=== PATIENT | male | born 2000 | race Two or more races ===

== ENCOUNTER → 2024-09-07 | Outpatient (CLI) | payer OTHER, SELFPAY ==
[2024-09-07 08:00] LABS: Collection Type, Urine Clean Catch
[2024-09-07 08:29] LABS: Bilirubin,Urine Negative (Negative); Blood,Urine Negative (Negative); Clarity,Urine Clear (Clear/Hazy); Color,Urine Lt-Yellow (Lt Yel-Yel); Glucose, Urine Negative (Negative); Ketones,Urine Negative (Negative); Leukocyte Esterase,Urine Negative (Negative); Nitrite,Urine Negative (Negative); Protein,Urine Negative (Neg - Trace); RBC,Urine 23 /hpf (0-3); Specific Gravity,Urine 1.024 (1.001-1.035); Squamous Epithelial Cell,Urine 3 /hpf (0-5); Urobilinogen,Urine Negative mg/dL (0.0-1.0); WBC,Urine 2 /hpf (0-5)
[2024-09-07 08:33] LABS: Basophils % (Auto) 0 % (0-2.5); Eosinophils # (Auto) 0.2 Thou/mm3 (0.0-0.5); Eosinophils % (Auto) 3 % (0-10); Hemoglobin 16.4 g/dL (13.5-16.0); Immature Granulocytes % (Auto) 0 % (0-0); Immature Granulocytes Auto 0.01 Thou/mm3 (0.00-0.00); Lymphocytes # (Auto) 2.1 Thou/mm3 (1.0-4.8); Lymphocytes % (Auto) 36 % (10-50); Mean Corpuscular HGB Conc 33.5 g/dl (31.0-37.0); Mean Corpuscular Hemoglobin 27.7 pg (25.0-35.0); Mean Corpuscular Volume 83 fL (80-100); Monocytes # (Auto) 0.4 Thou/mm3 (0.0-0.8); Monocytes % (Auto) 8 % (0-12); Neutrophils % (Auto) 53 % (37-80); Nucleated Red Blood Cell % 0 /100 WBC (0); Platelet Count 292 Thou/mm3 (140-440); RDW Standard Deviation 38.8 fL (35.1-43.9); Red Blood Count 5.93 Miln/mm3 (4.50-5.90); White Blood Count 5.7 Thou/mm3 (3.8-10.6)
[2024-09-07 08:45] LABS: Alanine Aminotransferase 21 U/L (10-49); Albumin, Serum 4.7 gm/dL (3.5-5.0); Albumin/Globulin Ratio 1.8 (1.2-2.2); Alkaline Phosphatase 62 U/L (46-116); Amylase 112 U/L (30-118); Anion Gap 5 (7-16); Aspartate Amino Transferase 23 U/L (0-34); BUN/Creatinine Ratio 13 Ratio (12-20); Bilirubin,Total 0.9 mg/dL (0.3-1.2); Blood Urea Nitrogen 12 mg/dL (9-23); Calcium 10.2 mg/dL (8.3-10.6); Calcium (Corrected) 10.2 mg/dL (8.5-10.1); Carbon Dioxide 29.4 mMol/L (20.0-31.0); Chloride 104 mMol/L (98-107); Creatinine (Component) 0.9 mg/dL (0.6-1.3); Globulin 2.6 gm/dL (2.3-3.5); Glucose 90 mg/dL (74-106); Lipase 43 U/L (12-53); Osmolality,Calculated 275 (275-295); Potassium 4.6 mMol/L (3.4-5.1); Sodium 138 mMol/L (136-145); Total Protein 7.3 gm/dL (5.7-8.2); eGFR > 60 See Note
== END | disposition home or self-care (01) ==
LOC: COPL 06:44
PROVIDERS: PCP Family Medicine; Referring Provider Specialist; Visit Provider Specialist
DX: R10.32 Left lower quadrant pain (principal); R10.12 Left upper quadrant pain; R14.0 Abdominal distension (gaseous)
CPT/HCPCS: 36415; 80053; 81001; 82150; 83690; 85025

== ENCOUNTER 2024-10-04 11:19 | Day surgery (SDC) | payer OTHER, SELFPAY ==
[2024-10-03 12:26] VITALS: BMI 39.1
[2024-10-04] VITALS (10 sets, daily range): BP systolic 119–143; BP diastolic 77–99; PULSE 73–109; RESP 13–22; TEMP 36.2–36.3; O2SAT 97–100; BMI 38.3
[2024-10-04] MEDS: DiphenhydrAMINE INJ 50 MG/ML VIAL 25 MG IV (12:46)
[2024-10-04] MEDS: MIDAZOLAM INJ 1 MG/ML VIAL 2 ML (ASD USE ONLY) 2 MG IV ×2 (12:46→12:55)
[2024-10-04] MEDS: fentaNYL CIT INJ 50 mCg/ML AMP 2ML (ASD USE ONLY) IV ×2 (12:46→12:55)
--- NOTE | 2024-10-04 14:06 | SUR.PHASEII ---
1335 Pt more awake and alert. Denies pain or N/V. Abd remains soft. pt passing flatus. Cheri Po fluids. 1355 Pt assessment unchanged. No complaints. Amb with steady gait. Able to dress self. Pt and mother, Noemi, given dc instructions. Both state understanding. Pt meets dc criteria-to home.
== END 2024-10-04 13:55 | disposition home or self-care (01) ==
PROVIDERS: PCP Family Medicine; Referring Provider Specialist; Visit Provider Specialist
PROC: 0DBE8ZX Excision of Large Intestine, Via Natural or Artificial Opening Endoscopic, Diagnostic (ICD-10-PCS; CPT 45380; principal; 2024-10-04 11:15)
PROC: (CPT 43239; 2024-10-04 11:15)
DX: K64.9 Unspecified hemorrhoids (principal); K22.10 Ulcer of esophagus without bleeding; K29.70 Gastritis, unspecified, without bleeding; K29.50 Unspecified chronic gastritis without bleeding; K22.70 Barrett's esophagus without dysplasia; K31.89 Other diseases of stomach and duodenum; I10 Essential (primary) hypertension; Z79.899 Other long term (current) drug therapy
CPT/HCPCS: 45378; 43239; J1200; J2250; J3010

== ENCOUNTER 2024-11-11 19:12 | Emergency (ER) | payer OTHER, SELFPAY ==
[2024-11-11 19:13] VITALS: BMI 39.1
[2024-11-11 19:29] VITALS: BP 132/87; PULSE 72; RESP 18; TEMP 36.7; O2SAT 98
--- NOTE | 2024-11-11 19:36 | XR_ITS ---
Examination: Abdomen sonogram, Limited Date and time of exam: November 11, 2024 1953 hrs. Indications: Onset severe epigastric pain beginning today Technique: Real-time arceo scale transabdominal sonographic images of the upper abdomen obtained. Findings: Minimal gallbladder sludge with tiny gallstones Gallbladder wall 0.2 cm Common bile duct 0.3 cm Pancreas obscured by bowel gas Liver 18.7 cm smooth contour no focal liver lesions Normal hepatopedal portal venous flow Patent IVC Impression: Cholelithiasis, negative for cholecystitis Normal common bile duct Moderate hepatomegaly no focal liver lesions
--- NOTE | 2024-11-11 19:37 | PD.EDRME ---
Rapid Medical Screening Exam E Arrival date/time: 11/11/24 19:12 Chief Complaint: Abdominal Pain Time Seen by Provider: 11/11/24 19:25 Vital signs: Vital Signs Temperature 98.1 F 11/11/24 19:29 Pulse Rate 72 11/11/24 19:29 Respiratory Rate 18 11/11/24 19:29 Blood Pressure 132/87 H 11/11/24 19:29 Pulse Oximetry (%) 98 11/11/24 19:29 Oxygen Delivery Method Room Air 11/11/24 19:29 E Narrative: Epigastric pain, nausea/vomiting since this morning. History of gallstones.
[2024-11-11] MEDS: ONDANSETRON ODT 4 MG TABRAP PO (19:43)
[2024-11-11] MEDS: KETOROLAC INJ 60 MG/2 ML VIAL 30 MG IM (19:44)
[2024-11-11 20:43] LABS: Collection Type, Urine Clean Catch; RBC,Urine 0 /hpf (0-3); WBC,Urine 0 /hpf (0-5)
[2024-11-11 20:45] LABS: Basophils # (Auto) 0.1 Thou/mm3 (0.0-0.2); Basophils % (Auto) 0 % (0-2.5); Eosinophils # (Auto) 0.1 Thou/mm3 (0.0-0.5); Eosinophils % (Auto) 1 % (0-10); Hematocrit 45.9 % (41.0-53.0); Hemoglobin 15.5 g/dL (13.5-16.0); Immature Granulocytes % (Auto) 0 % (0-0); Immature Granulocytes Auto 0.05 Thou/mm3 (0.00-0.00); Lymphocytes # (Auto) 2.2 Thou/mm3 (1.0-4.8); Lymphocytes % (Auto) 15 % (10-50); Mean Corpuscular HGB Conc 33.8 g/dl (31.0-37.0); Mean Corpuscular Hemoglobin 27.9 pg (25.0-35.0); Mean Corpuscular Volume 83 fL (80-100); Monocytes % (Auto) 7 % (0-12); Neutrophils # (Auto) 11.2 Thou/mm3 (1.8-7.7); Neutrophils % (Auto) 77 % (37-80); Nucleated Red Blood Cell % 0 /100 WBC (0); Platelet Count 282 Thou/mm3 (140-440); RDW Standard Deviation 38.1 fL (35.1-43.9); Red Blood Count 5.56 Miln/mm3 (4.50-5.90); White Blood Count 14.6 Thou/mm3 (3.8-10.6)
[2024-11-11 20:52] LABS: Bacteria,Urine Rare; Bilirubin,Urine Negative (Negative); Blood,Urine Negative (Negative); Clarity,Urine Clear (Clear/Hazy); Color,Urine Lt-Yellow (Lt Yel-Yel); Glucose, Urine Negative (Negative); Ketones,Urine Negative (Negative); Leukocyte Esterase,Urine Negative (Negative); Nitrite,Urine Negative (Negative); PH,Urine 8.5 (5.0-7.0); Protein,Urine Trace (Neg - Trace); Specific Gravity,Urine 1.022 (1.001-1.035); Squamous Epithelial Cell,Urine 1 /hpf (0-5); Urobilinogen,Urine Negative mg/dL (0.0-1.0)
[2024-11-11 21:03] LABS: Alanine Aminotransferase 16 U/L (10-49); Albumin, Serum 4.7 gm/dL (3.5-5.0); Albumin/Globulin Ratio 1.6 (1.2-2.2); Alkaline Phosphatase 63 U/L (46-116); Anion Gap 9 (7-16); Aspartate Amino Transferase 19 U/L (0-34); BUN/Creatinine Ratio 14 Ratio (12-20); Bilirubin,Total 0.8 mg/dL (0.3-1.2); Blood Urea Nitrogen 13 mg/dL (9-23); Calcium 10.1 mg/dL (8.3-10.6); Calcium (Corrected) 10.1 mg/dL (8.5-10.1); Carbon Dioxide 27.7 mMol/L (20.0-31.0); Chloride 104 mMol/L (98-107); Creatinine (Component) 0.9 mg/dL (0.6-1.3); Estimated Creatinine Clearance 153.5 mL/min (>60); Glucose 82 mg/dL (74-106); Lipase 97 U/L (12-53); Osmolality,Calculated 280 (275-295); Potassium 3.6 mMol/L (3.4-5.1); Sodium 141 mMol/L (136-145); Total Protein 7.7 gm/dL (5.7-8.2); eGFR > 60 See Note
--- NOTE | 2024-11-11 21:40 | PD.EDABDPN ---
ED Abdominal Pain RME/HPI General Chief Complaint: Abdominal Pain Stated complaint: ABD PAIN/ SOB Time seen by provider: 11/11/24 19:25 Arrival date/time: 11/11/24 19:12 RME / HPI RME / HPI narrative: 24-year-old male patient with significant history of gallstone, hypertension, came in for evaluation regarding epigastric pain. Onset of symptoms about several hours prior to ER visit as sudden onset of epigastric pain, described as crampy and colicky, severity moderate, nonradiating. Patient also complained of shortness of breath, especially with pain. Denies any fever denies any vomiting denies any constipation diarrhea or other complaints. Patient was seen by Dr. Ordaz and already underwent endoscopy and colonoscopy. Patient told me that the next time will be to take out his gallbladder. Related Data Home Medications ?Medication ?Instructions ?Recorded ?Confirmed amlodipine 5 mg tablet 5 mg PO QDAY 10/03/24 10/04/24 cimetidine 300 mg tablet 300 mg PO TIDWMEAL 10/03/24 10/03/24 Previous Rx's ?Medication ?Instructions ?Recorded dicyclomine 20 mg tablet 20 mg PO TID PRN abdominal pain 11/11/24 #20 tabs Allergies Allergy/AdvReac Type Severity Reaction Status Date / Time NKA Allergy Unknown Uncoded 10/03/24 12:16 Review of Systems Review of Systems Narrative Review of Systems: Review of system reviewed and within normal limits except mentioned in HPI ED Exam Narrative Physical exam: VITAL SIGNS: Reviewed. GENERAL APPEARANCE: Alert and interactive, follows commands, no acute distress, HEAD AND FACE: Non-traumatic. ENT: PERRL, pink conjunctivitis, eyelid no trauma, Mucous membrane moist. NECK: Supple, nontender, no nuchal rigidity. CHEST: No tenderness, no crepitus, no paradoxical movement, no retractions. LUNGS: Clear, well ventilated, symmetric, no rales, no wheezing, no ronchi, no stridor, good breath sounds bilaterally. HEART: Regular rate, regular rhythm, no murmur, no gallops. ABDOMEN: Soft, positive bowel sounds, nondistended, no guarding, epigastric tenderness, no rebound, no masses, RECTAL: Deferred. GENITAL: Deferred. NEUROLOGICAL: Gross motor function intact sensory function intact, Appropriate for age. MUSCULOSKELETAL: low back nontender, full range of motion. EXTREMITIES: Nontender, full range of motion. SKIN: Color pink, dry, no rash, no lacerations, no abrasions, no contusions. LYMPHATICS: Deferred. Course Quality Measures none Orders Category Date Time Status US gall bladder Stat Exams 11/11/24 19:36 Completed CBC Stat Lab 11/11/24 20:08 Completed CMP [Comprehensive Metabolic Panel] Stat Lab 11/11/24 20:08 Completed Lipase Stat Lab 11/11/24 20:08 Completed UA [Urinalysis] Stat Lab 11/11/24 20:12 Completed Ketorolac Inj [Toradol Inj] Med 11/11/24 19:36 Discontinued 30 mg IM X1 ONE Ondansetron Odt [Zofran Odt] Med 11/11/24 19:36 Discontinued 4 mg PO X1 ONE Vital Signs Vital signs: Vital Signs Temperature 98.1 F 11/11/24 19:29 Pulse Rate 72 11/11/24 19:29 Respiratory Rate 18 11/11/24 19:29 Blood Pressure 132/87 H 11/11/24 19:29 Pulse Oximetry (%) 98 11/11/24 19:29 Oxygen Delivery Method Room Air 11/11/24 19:29 Abdominal Pain MDM MDM Narrative MDM Narrative:: 24-year-old male patient with significant history of gallstone, hypertension, came in for evaluation regarding epigastric pain. Onset of symptoms about several hours prior to ER visit as sudden onset of epigastric pain, described as crampy and colicky, severity moderate, nonradiating. Patient also complained of shortness of breath, especially with pain. Denies any fever denies any vomiting denies any constipation diarrhea or other complaints. Patient was seen by Dr. Ordaz and already underwent endoscopy and colonoscopy. Patient told me that the next time will be to take out his gallbladder. Patient's workup all came back unremarkable. Except for slight leukocytosis of 14.6 LFTs are normal. Total bili is normal. Prior to discharge patient abdominal pain is totally gone. Patient was advised to follow-up with PCP and for referral to general surgeon next week. Patient agrees with the plan. Patient data External records reviewed:: None Clinical information provided by:: patient Social determinants that could affect healthcare access:: none Patient has the following chronic illnesses:: History gallstone How is presenting disease/condition affected by chronic disease/condition?: no chronic disease Evaluation data The following diagnostics were reviewed and interpreted by me:: lab results Lab and/or radiology exams considered but not ordered:: None Interpretation Summary: Patient's workup today all came back unremarkable except for leukocytosis of 14.6. LFTs are normal. The rest of the labs unremarkable. Medications / Prescriptions Medications or Prescriptions considered but not ordered:: None Medication administrations:: Medication Administration History Discontinued Medications Ketorolac Tromethamine (Ketorolac Inj 60 Mg/2 Ml Vial) 30 mg IM X1 ONE Stop: 11/11/24 19:37 Last Admin: 11/11/24 19:44 Dose: 30 mg Documented By: Ondansetron HCl (Ondansetron Odt 4 Mg Tabrap) 4 mg PO X1 ONE; Protocol Stop: 11/11/24 19:37 Last Admin: 11/11/24 19:43 Dose: 4 mg Documented By: Toradol and Zofran Consultations Consultation(s) initiated? (list below): No Diagnosis Differential diagnosis abdominal pain: abdominal pain and other (Biliary colic, gallstone) Most likely diagnosis given after review of the tests above:: Biliary colic, gallstone Admission Indicated Admission indicated?: not indicated Admission Request Was there a request for admission?: No Disposition Plan Disposition Plan: Discharge Discharge Attestation Discharge Attestation: The patient and all family members were given an opportunity to ask questions and understood the discharge instructions. Discharge instructions specifically effects, indications for sooner follow up or return to the emergency department, and the expected course of current diagnosis. Patient condition: Stable Discharge Plan Plan Patient Disposition: HOME (Self Care) Disposition Comment: Stable Prescriptions/Referrals Prescriptions/Med Rec: New dicyclomine 20 mg tablet 20 mg PO TID PRN (Reason: abdominal pain) Qty: 20 0RF No Action amlodipine 5 mg tablet 5 mg PO QDAY Patient Comments: TAKE 1 TABLET BY MOUTH ONCE DAILY cimetidine 300 mg tablet 300 mg PO TIDWMEAL Patient Comments: TAKE 1 TABLET BY MOUTH TWICE DAILY WITH MEALS Referrals: Marcus (PCP)Misbah MD [Primary Care Provider] - In 1 week Problem List Clinical Impression: Biliary colic, Gallstone Patient/Caregiver Discharge Instructions Discharge Activity: activity as tolerated Education Materials: ED Gallstones with Biliary Colic Additional Instructions: Thank you for the opportunity for serving you today. You are stable for discharged . You are advised to: Follow-up with your PCP in 1 to 2 days and ask for referral to general surgeon Please avoid eating fatty, greasy, fried foods. Return to ED for worsening of symptoms Increase oral fluids Take medication as prescribed Print Language: Georgian Stand Alone Forms: Vera Award Info., Patient Portal Info Letter
[2024-11-11 21:47] VITALS: RESP 18
== END 2024-11-11 21:47 | disposition home or self-care (01) ==
PROVIDERS: Physician Assistant; Emergency Provider Emergency Medicine; PCP Family Medicine
DX: K80.70 Calculus of gallbladder and bile duct without cholecystitis without obstruction (principal); I10 Essential (primary) hypertension
CPT/HCPCS: 36415; 76705; 80053; 81001; 83690; 85025; 96372; 99284; J1885; Q0162

== ENCOUNTER 2024-12-20 03:25 | Inpatient (IN) | payer OTHER, SELFPAY ==
[2024-12-20] VITALS (8 sets, daily range): BP systolic 115–141; BP diastolic 77–94; PULSE 58–92; RESP 16–97; TEMP 36.1–36.8; O2SAT 97–100; BMI 39.9
--- NOTE | 2024-12-20 03:54 | XR_ITS ---
Examination: Abdomen sonogram, Limited Date and time of exam: December 03, 2024 0432 hrs. Indications: Right upper abdominal pain with nausea beginning today Technique: Real-time arceo scale transabdominal sonographic images of the upper abdomen obtained. Findings: Gallbladder sludge, tiny gallstones Gallbladder wall 0.39 cm no edema Common bile duct 0.36 cm no stones Pancreas obscured by bowel gas Liver 14 cm no liver lesions Normal hepatopedal portal venous flow Patent IVC Impression: Cholelithiasis Abnormal thickening of the gallbladder wall, clinical correlation advised, suggest HIDA scan or MRCP follow-up as clinically warranted
--- NOTE | 2024-12-20 03:55 | PD.EDRME ---
Rapid Medical Screening Exam RME Arrival date/time: 12/20/24 03:25 24-year-old male past medical history of gallstones presents emergency department complaining of right upper quadrant abdominal pain with nausea that started today. Chief Complaint: Abdominal Pain Time Seen by Provider: 12/20/24 03:28 Vital signs: Vital Signs Temperature 97.8 F 12/20/24 03:45 Pulse Rate 63 12/20/24 03:45 Respiratory Rate 17 12/20/24 03:45 Blood Pressure 118/77 12/20/24 03:45 Pulse Oximetry (%) 98 12/20/24 03:45 Oxygen Delivery Method Room Air 12/20/24 03:45 Vital signs reviewed by provider: Yes
[2024-12-20] MEDS: KETOROLAC INJ 60 MG/2 ML VIAL 30 MG IM (04:16)
[2024-12-20 04:53] LABS: Basophils % (Auto) 0 % (0-2.5); Eosinophils # (Auto) 0.1 Thou/mm3 (0.0-0.5); Eosinophils % (Auto) 1 % (0-10); Hematocrit 44.5 % (41.0-53.0); Hemoglobin 15.4 g/dL (13.5-16.0); Immature Granulocytes % (Auto) 0 % (0-0); Immature Granulocytes Auto 0.02 Thou/mm3 (0.00-0.00); Lymphocytes # (Auto) 1.5 Thou/mm3 (1.0-4.8); Lymphocytes % (Auto) 14 % (10-50); Mean Corpuscular HGB Conc 34.6 g/dl (31.0-37.0); Mean Corpuscular Hemoglobin 28.3 pg (25.0-35.0); Mean Corpuscular Volume 82 fL (80-100); Monocytes # (Auto) 0.7 Thou/mm3 (0.0-0.8); Monocytes % (Auto) 7 % (0-12); Neutrophils # (Auto) 8.1 Thou/mm3 (1.8-7.7); Neutrophils % (Auto) 77 % (37-80); Nucleated Red Blood Cell % 0 /100 WBC (0); Platelet Count 239 Thou/mm3 (140-440); RDW Standard Deviation 37.4 fL (35.1-43.9); Red Blood Count 5.44 Miln/mm3 (4.50-5.90); White Blood Count 10.4 Thou/mm3 (3.8-10.6)
[2024-12-20 05:33] LABS: Alanine Aminotransferase 28 U/L (10-49); Albumin, Serum 4.3 gm/dL (3.5-5.0); Albumin/Globulin Ratio 1.6 (1.2-2.2); Alkaline Phosphatase 59 U/L (46-116); Anion Gap 7 (7-16); Aspartate Amino Transferase 40 U/L (0-34); BUN/Creatinine Ratio 21 Ratio (12-20); Bilirubin,Total 0.6 mg/dL (0.3-1.2); Blood Urea Nitrogen 19 mg/dL (9-23); Calcium 9.7 mg/dL (8.3-10.6); Calcium (Corrected) 9.7 mg/dL (8.5-10.1); Chloride 106 mMol/L (98-107); Creatinine (Component) 0.9 mg/dL (0.6-1.3); Estimated Creatinine Clearance 155.1 mL/min (>60); Globulin 2.7 gm/dL (2.3-3.5); Glucose 81 mg/dL (74-106); Lipase 1548 U/L (12-53); Osmolality,Calculated 282 (275-295); Potassium 4.2 mMol/L (3.4-5.1); Sodium 141 mMol/L (136-145); eGFR > 60 See Note
[2024-12-20 05:38] LABS: Collection Type, Urine Clean Catch
[2024-12-20 05:48] LABS: Bacteria,Urine Rare; Bilirubin,Urine Negative (Negative); Blood,Urine Negative (Negative); Budding Yeast,Urine Present; Clarity,Urine Turbid (Clear/Hazy); Color,Urine Lt-Yellow (Lt Yel-Yel); Culture Indicated,Urine Not Indicated; Glucose, Urine Negative (Negative); Ketones,Urine Negative (Negative); Leukocyte Esterase,Urine Negative (Negative); Nitrite,Urine Negative (Negative); PH,Urine 7.5 (5.0-7.0); Protein,Urine Trace (Neg - Trace); RBC,Urine 2 /hpf (0-3); Specific Gravity,Urine 1.024 (1.001-1.035); Squamous Epithelial Cell,Urine < 1 /hpf (0-5); Urobilinogen,Urine Negative mg/dL (0.0-1.0); WBC,Urine 6 /hpf (0-5)
[2024-12-20 05:53] LABS: Amphetamine/Methamp Scrn,U Negative (Negative); Barbiturate Screen,Urine Negative (Negative); Benzodiazepines Screen,Urine Negative (Negative); Benzoylecgonine Screen, Ur Negative (Negative); Fentanyl Screen,Urine Negative (Negative); Opiate Screen,Urine Negative (Negative); THC Screen,Urine Negative (Negative)
--- NOTE | 2024-12-20 06:00 | PRELIM_ITS ---
Gallbladder ultrasound with doppler and wave doppler spectral analysis. December 20, 2024 at 0432 hours Clinical history: Right upper quadrant pain. Comparison: None. Findings: The visualized liver is normal in echogenicity without mass or ductal dilatation. Gallbladder wall thickening. No gallbladder calculus or pericholecystic fluid is identified. Gallbladder sludge. The common duct is normal in caliber at 3.6 mm. No free fluid is demonstrated on the submitted images. The portal vein is patent with hepatopetal flow and normal wave Doppler spectral analysis. The inferior vena cava is patent with normal wave Doppler spectral analysis. Watts sign is not available at the time of this report. Impression: Gallbladder wall thickening and gallbladder sludge, acute cholecystitis cannot be excluded. Consider correlation with HIDA scan. Report Electronically Signed By: Marko Hay 12/20/2024 6:00:01 AM [EST]
--- NOTE | 2024-12-20 06:43 | EDNOTE_ITS ---
ED General RME/HPI General Chief complaint: Abdominal Pain Stated complaint: ABD PAIN/ HX OF GALLSTONES Time Seen by Provider: 12/20/24 03:28 Arrival date/time: 12/20/24 03:25 RME / HPI RME / HPI narrative: 12/20/24 03:25 24-year-old male past medical history of gallstones presents emergency department complaining of right upper quadrant abdominal pain with nausea that started today. DR. PARNELL MAIN ED EVALUATION: 24-year-old male with a history of gallstones who presents with gradually worsening right upper quadrant pain starting late last night. He does admit to eating fatty greasy foods last night ([place]ol[place]). He denies any home medicines, [id number] medicines, or alcohol. He has seen Dr. Ordaz open she had an EGD which was negative. He is pending referral to surgery. Pain is since resolved spontaneously over the course of the night. Related Data Home Medications ?Medication ?Instructions ?Recorded ?Confirmed amlodipine 5 mg tablet 5 mg PO QDAY 10/03/24 cimetidine 300 mg tablet 300 mg PO TIDWMEAL 10/03/24 10/03/24 Previous Rx's ?Medication ?Instructions ?Recorded dicyclomine 20 mg tablet 20 mg PO TID PRN abdominal p ain 11/11/24 #20 tabs Allergies Allergy/AdvReac Type Severity Reaction Status Date / Time No Known Allergies Allergy Unverified 12/21/24 08:13 Review of Systems Review of Systems Systems Reviewed: All systems reviewed, normal except as documented Narrative Review of Systems: GEN: No fever, no chills, no weight loss EYES: No discharge, no visual changes, no pain HEENT: No ear pain, no congestion, no sore throat PULM: No shortness of breath, no cough, no congestion CV: No chest pain, no dyspnea on exertion, no palpitations GI: No nausea, no vomiting, no diarrhea, + right upper quadrant pain, no constipation : No frequency, no urgency and no dysuria MUSC/SKEL: No joint pain, no back pain SKIN: No rash PSYCH: No hallucinations, no depression HEME/LYMPH: No easy bleeding or bruising tendencies NEURO: No weakness, no headache Past Medical History Past Medical History CARDIAC: Positive Cardiac Disorders and Hypertension GASTROINTESTINAL: Positive Gastrointestinal Disorders, Gall Bladder Disease (gb stones), Gastrointestinal Bleed (rectal) and Gastroesophageal Reflux Disease Social History SMOKING STATUS: Never smoker SUBSTANCE USE: does not use ALCOHOL: Never ED Exam Narrative Physical exam: GENERAL APPEARANCE: AxOx4, generally well-appearing, no acute distress. HEENT: NC, AT. MMM. EOMI, clear conjunctiva, oropharynx clear. NECK: Supple without lymphadenopathy. No stiffness or restricted ROM. HEART: Normal rate and regular rhythm, normal S1/S1, no m/r/g LUNGS: CTAB, moving air well. No crackles or wheezes are heard. ABDOMEN: Soft, nontender, nondistended with good bowel sounds heard. BACK: No midline C/T/L spine pain or deformity, No CVAT, no obvious deformity. EXTREMITIES: Without cyanosis, clubbing or edema. MUSCULOSKELETAL: FROM of all major joints, no chest tenderness NEUROLOGICAL: Grossly nonfocal. Alert and oriented, moving all 4 extremities. CN not formally tested but appear grossly intact. Skin: Warm and dry without any rash. Course Quality Measures none Orders Category Date Time Status Insert IV NOW Care 12/20/24 05:39 Active NPO NOW Care 12/20/24 05:40 Active Consult to Gastroenterology Stat Cons 12/20/24 09:09 Ordered Consult to General Surgery Stat Cons 12/20/24 09:08 Ordered Diet NPO (NOW) Diet 12/20/24 05:40 Completed US gall bladder Stat Exams 12/20/24 03:54 Completed Amylase Stat Lab 12/20/24 04:45 Completed CBC Stat Lab 12/20/24 04:45 Completed CMP [Comprehensive Metabolic Panel] Stat Lab 12/20/24 04:45 Completed Drug Screen,Urine Stat Lab 12/20/24 05:12 Completed Lipase Stat Lab 12/20/24 04:45 Completed Urinalysis, C/S if Indicated Stat Lab 12/20/24 05:12 Completed Ketorolac Inj [Toradol Inj] Med 12/20/24 03:54 Discontinued 30 mg IM X1 ONE Sodium Chloride 0.9% 1000 ml [Ns] 1,000 ml Med 12/20/24 05:40 Discontinued IV 999 mls/hr Vital Signs Vital signs: Vital Signs Temperature 97.8 F 12/20/24 03:45 Pulse Rate 63 12/20/24 03:45 Respiratory Rate 17 12/20/24 03:45 Blood Pressure 118/77 12/20/24 03:45 Pulse Oximetry (%) 98 12/20/24 03:45 Oxygen Delivery Method Room Air 12/20/24 03:45 [facility] Patient data External records reviewed:: [facility] previous records (Reviewed last ED visit dated 11/11/24, discharged with the following: Biliary colic) Clinical information provided by:: patient Social determinants that could affect healthcare access:: none Patient has the following chronic illnesses:: Gallstones. He has seen Dr. Ordaz open she had an EGD which was negative. He is pending referral to surgery. How is presenting disease/condition affected by chronic disease/condition?: c aused by Evaluation data The following diagnostics were reviewed and interpreted by me:: lab results and radiology exam(s) Lab and/or radiology exams considered but not ordered:: none Interpretation Summary: Procedure(s): US gall bladder Accession Number(s): [id number] cc: Vijay Grady MD; Misbah Velazquez MD; Janelle Love (OPERATING ROOM TECHNICIAN)[place]wood~ Examination: Abdomen sonogram, Limited Date and time of exam: December 03, 2024 0432 hrs. Indications: Right upper abdominal pain with nausea beginning today Technique: Real-time arceo scale transabdominal sonographic images of the upper abdomen obtained. Findings: Gallbladder sludge, tiny gallstones Gallbladder wall 0.39 cm no edema Common bile duct 0.36 cm no stones Pancreas obscured by bowel gas Liver 14 cm no liver lesions Normal hepatopedal portal venous flow Patent IVC Impression: Cholelithiasis Abnormal thickening of the gallbladder wall, clinical correlation advised, suggest HIDA scan or MRCP follow-up as clinically warranted Dictated By: Vijay Grady MD Medications Medications considered but not ordered:: none Medication administrations:: Medication Administration History Acetaminophen (Acetaminophen 325 Mg Tablet) 650 mg PO Q6H PRN PRN Reason: Pain 1-3 or Fever >100.3 Stop: 01/19/25 09:53 Hydrocodone Bitart/Acetaminophen (Hydrocodone/Apap 5/325 Tablet) 1 tab PO Q4HR PRN PRN Reason: PAIN SCALE 4-10(Mod-Sev Stop: 12/25/24 09:53 Sodium Chloride (Ns) 1,000 mls @ 100 mls/hr IV .Q10H PASCUAL Stop: 01/20/25 09:00 Last Admin: 12/21/24 07:56 Dose: Not Given Documented By: KATHY Non-Admin Reason: Cancelled by Provider Admin: 12/20/24 23:38 Dose: 100 mls/hr Documented By: Infusion: 12/20/24 21:13 Dose: Infused Documented By: Admin: 12/20/24 11:13 Dose: 100 mls/hr Documented By: ED Lactated Ringer's (Lactated Ringers) 1,000 mls @ 200 mls/hr IV .Q5H PASCUAL Stop: 01/20/25 07:42 Last Admin: 12/21/24 07:59 Dose: 200 mls/hr Documented By: KATHY Ondansetron HCl (Ondansetron Inj 2 Mg/Ml Inj 2 Ml) 4 mg IV Q6H PRN; Protocol PRN Reason: NAUSEA OR VOMITING Stop: 01/19/25 09:53 Discontinued Medications Sodium Chloride (Ns) 1,000 mls @ 999 mls/hr IV .Q1H1M ONE Stop: 12/20/24 06:40 Last Infusion: 12/20/24 07:47 Dose: Infused Documented By: Admin: 12/20/24 06:46 Dose: 999 mls/hr Documented By: TACOS Ketorolac Tromethamine (Ketorolac Inj 60 Mg/2 Ml Vial) 30 mg IM X1 ONE Stop: 12/20/24 03:55 Last Admin: 12/20/24 04:16 Dose: 30 mg Documented By: JASON see above Consultations Consultation(s) initiated? (list below): Yes Consultation #1 (Physician, Specialty, Details): Discussed test HPI, PMHx, lab, radiology results and/or management with hospitalist. Will admit for further evaluation and management. Accepts patient for admission. Time: 09:30 Diagnosis Differential Diagnosis ED Complaint MDM: gallstones, pancreatitis, gastritis Most likely diagnosis given after review of the tests above:: Cholelithiasis Pancreatitis Admission Indicated Admission indicated?: indicated Explain why admission is indicated or not indicated:: Diagnoses meet admission criteria. Admission Request Was there a request for admission?: Yes Admission Attestation Admission request attestation: Discussed case with [] from Hospitalist service regarding admission. Discussed patients ED course, exam findings, labs, and radiology results. The Hospitalist [agrees,declines] to accept the patient for admission. Disposition Plan Disposition Plan: Admit Medical Decision Making MDM Narrative MDM Narrative: Mr. Mcgregor has a history of cholelithiasis who is otherwise well-appearing and now asymptomatic on my encounter. He did have symptoms consistent with a flareup of biliary colic after a greasy meal last night. Laboratory testing sent via the E process however was significant for a marked elevation of his lipase consistent with gallstone pancreatitis/choledocholithiasis. However given that he is pain-free now I suspect he had passed a stone from his CBD it was impacted earlier this evening. Ultrasound shows persistent cholelithiasis with micro stones. Given now was complicated with pancreatitis he would benefit from admission for monitoring his pancreatic levels, with possible cholecystectomy. Case reviewed with gastroenterology, Dr. Ordaz, and given patient is pain-free, he does not feel MRCP or ERCP is warranted at this point but does recommend admission as well and possible cholecystectomy. Case reviewed with general surgery, Dr. Lima, and he agrees to assess the patient in consult as an inpatient. Differential Diagnosis Differential Diagnosis: gallstones, pancreatitis, gastritis Lab Data 12/21/24 05:10 12/21/24 05:10 Labs: Lab Results 12/20/24 12/20/24 Range/Units 04:45 05:12 WBC 10.4 (3.8-10.6) Thou/mm3 RBC 5.44 (4.50-5.90) Miln/mm3 Hgb 15.4 (13.5-16.0) g/dL Hct 44.5 (41.0-53.0) % MCV 82 (80-100) fL MCH 28.3 (25.0-35.0) pg MCHC 34.6 (31.0-37.0) g/dl RDW Std Deviation 37.4 (35.1-43.9) fL Plt Count 239 D (140-440) Thou/mm3 Neut % (Auto) 77 (37-80) % Lymph % (Auto) 14 (10-50) % [place] % (Auto) 7 (0-12) % Eos % (Auto) 1 (0-10) % Baso % (Auto) 0 (0-2.5) % Neut # (Auto) 8.1 H (1.8-7.7) Thou/mm3 Lymph # (Auto) 1.5 (1.0-4.8) Thou/mm3 [place] # (Auto) 0.7 (0.0-0.8) Thou/mm3 Eos # (Auto) 0.1 (0.0-0.5) Thou/mm3 Baso # (Auto) 0.0 (0.0-0.2) Thou/mm3 Immature Gran # (Auto) 0.02 H (0.00-0.00) Thou/mm3 Absolute Nucleated RBC 0.00 (0.00-0.00) Thou/mm3 Immature Gran % 0 (0-0) % Nucleated RBC % 0 (0) /100 WBC Sodium 141 (136-145) mMol/L Potassium 4.2 (3.4-5.1) mMol/L Chloride 106 (98-107) mMol/L Carbon Dioxide 28.0 (20.0-31.0) mMol/L Anion Gap 7 (7-16) BUN 19 (9-23) mg/dL Creatinine 0.9 (0.6-1.3) mg/dL Estim Creat Clear Calc 155.1 (>60) mL/min eGFR > 60 (60 - ) See Note BUN/Creatinine Ratio 21 H (12-20) Ratio Glucose 81 (74-106) mg/dL Calculated Osmolality 282 (275-295) Calcium 9.7 (8.3-10.6) mg/dL Corrected Calcium 9.7 (8.5-10.1) mg/dL Total Bilirubin 0.6 (0.3-1.2) mg/dL AST 40 H (0-34) U/L ALT 28 (10-49) U/L Alkaline Phosphatase 59 (46-116) U/L Total Protein 7.0 (5.7-8.2) gm/dL Albumin 4.3 (3.5-5.0) gm/dL Globulin 2.7 (2.3-3.5) gm/dL Albumin/Globulin Ratio 1.6 (1.2-2.2) Amylase 603 H* (30-118) U/L Lipase 1548 H* (12-53) U/L Ur Collection Type Clean Catch Urine Color Lt-Yellow (Lt Yel-Yel) Urine Clarity Turbid A (Clear/Hazy) Urine pH 7.5 H (5.0-7.0) Ur Specific [place] 1.024 (1.001-1.035) Urine Protein Trace (Neg - Trace) Urine Glucose (UA) Negative (Negative) Urine Ketones Negative (Negative) Urine Blood Negative (Negative) Urine Nitrite Negative (Negative) Urine Bilirubin Negative (Negative) Urine Urobilinogen (Auto) Negative (0.0-1.0) mg/dL Ur Leukocyte Esterase Negative (Negative) Urine RBC 2 (0-3) /hpf Urine WBC 6 H (0-5) /hpf Ur Squamous Epith Cells < 1 (0-5) /hpf Urine Bacteria Rare (None) Urine Yeast (Budding) Present A (None) Ur Culture Indicated? Not Indicated Urine Opiates Screen Negative (Negative) Urine Fentanyl Screen Negative (Negative) Ur Barbiturates Screen Negative (Negative) U Amphetamin/Meth Scrn Negative (Negative) U Benzodiazepines Scrn Negative (Negative) U Cocaine Metab Screen Negative (Negative) U Marijuana (THC) Screen Negative (Negative) Discharge Plan Plan Patient Disposition: Admit Acute Care w/in Hospital Problem List Clinical Impression: Cholelithiasis, Pancreatitis
[2024-12-20] MEDS: SODIUM CHLORIDE 0.9% 1000 ML 1,000 ML 999 ML IV (06:46)
--- NOTE | 2024-12-20 08:57 | PC.NURSE ---
Pt. here from home to room 9, pt. states he ate some meat last night that his Mom made with francheska in it and then began to feel the pain. Pt. denies any nausea or vomiting at this time. Pt. states when he found out a year ago that he had gallstones he changed his diet then but now has not been sticking to his diet. Mother at bedside and states pt. doesn't listen.
--- NOTE | 2024-12-20 09:47 | PC.CC ---
Patient is a 24 year-old male who presents to the hospital for ABD Pain/HX of Gallstones. Jasmyn VASQUEZ made [id number] contact with patient. ASW introduced self, role, and reason for visit. Patient appeared alert and oriented to self, location, and situation.?Patient was pleasant and engaged in initial assessment. Patient confirmed information on demographics and reports to living with his mother, Noemi Mcgregor . Patient reports that should something happen to him and he is unable to make his own medical decisions his mother would be his medical decision maker. Patient is employed at [employer]. At home patient is able to ambulate independently and complete his own ADLs. Patient does not use any DME. Patient's primary care provider is Misbah Velazquez and he uses the pharmacy inside [facility]. Upon discharge patient plans to return home. food services director to follow up with any discharge needs.
--- NOTE | 2024-12-20 10:03 | PD.IMCONS ---
HPI Data of Consult Primary Care Provider: Misbah Velazquez MD Consult Narrative Reason for consult: Pain abdomen elevated amylase lipase History of present illness: 24 was admitted presented to the hospital history of abdominal pain patient had elevated amylase of 603 and lipase of 1548 ultrasound of the abdomen showed cholelithiasis Patient does not drink any alcohol cc:: cc: Review of Systems Review of Systems Systems Reviewed: All systems reviewed, normal except as documented Meds Home Medications and Allergies Home Medications ?Medication ?Instructions ?Recorded ?Confirmed ?Type amlodipine 5 mg tablet 5 mg PO QDAY 10/03/24 10/04/24 History cimetidine 300 mg tablet 300 mg PO TIDWMEAL 10/03/24 10/03/24 History Allergies Allergy/AdvReac Type Severity Reaction Status Date / Time NKA Allergy Unknown Uncoded 10/03/24 12:16 Exam Vital Signs Temp Pulse Resp BP Pulse Ox O2 Del Method 97.7 F 72 18 137/87 H 99 Room Air 12/20/24 09:52 12/20/24 09:52 12/20/24 09:52 12/20/24 09:52 12/20/24 09:52 12/20/24 09:52 Constitutional Comments: Alert oriented Routine Respiratory Exam Comments: Normal to auscultation Routine Abdominal Exam Comments: Midepigastric tenderness Results Labs 12/20/24 04:45 12/20/24 04:45 Labs: Short CBC 12/20/24 Range/Units 04:45 WBC 10.4 (3.8-10.6) Thou/mm3 Hgb 15.4 (13.5-16.0) g/dL Hct 44.5 (41.0-53.0) % Plt Count 239 D (140-440) Thou/mm3 BMP 12/20/24 04:45 Sodium 141 Potassium 4.2 Chloride 106 Carbon Dioxide 28.0 BUN 19 Creatinine 0.9 Glucose 81 Calcium 9.7 Liver Function 12/20/24 Range/Units 04:45 Total Bilirubin 0.6 (0.3-1.2) mg/dL AST 40 H (0-34) U/L ALT 28 (10-49) U/L Alkaline Phosphatase 59 (46-116) U/L Albumin 4.3 (3.5-5.0) gm/dL Urine 12/20/24 Range/Units 05:12 Urine Color Lt-Yellow (Lt Yel-Yel) Urine Clarity Turbid A (Clear/Hazy) Urine pH 7.5 H (5.0-7.0) Ur Specific [place] 1.024 (1.001-1.035) Urine Protein Trace (Neg - Trace) Urine Glucose (UA) Negative (Negative) Assessment and Plan Additional Assessment & Plan Additional Plan: # Acute biliary pancreatitis Plan N.p.o. IV fluids Pain control Once amylase and lipase comes down patient should have laparoscopic versus open cholecystectomy No need for MRCP or HIDA scan Thank you for the opportunity to participate in the care of this patient Other medical problems include Essential hypertension
[2024-12-20 10:25] LABS: Amylase 603 U/L (30-118)
[2024-12-20] MEDS: SODIUM CHLORIDE 0.9% 1000 ML 1,000 ML 100 ML IV ×2 (11:13→23:38)
--- NOTE | 2024-12-20 15:56 | ESHP_ITS ---
<Statement entered by Silvio Johnston MD - 12/20/24 18:30> Senior Resident Attestation: I supervised/discussed management plan with public health internship physician Dr. Griffith, and was involved in the care of this patient. I personally saw and examined the patient and discussed the assessment and plan with the entire medicine team, including my attending. I agree with the assessment and plan as documented. Patient is 24 years old male with past medical history of hypertension and cholelithiasis presented to the ED with acute onset abdominal pain. He was found to have elevated lipase at 1548 and gallbladder ultrasound show cholelithiasis. While evaluated in the ED his pain has resolved. General surgery was consulted and patient was admitted for further management of cholelithiasis. Patient's care was discussed with attending physician, Dr. Asencio. Silvio Johnston MD PGY-2. Documentation for date of: 12/20/24 HPI History of Present Illness History of present illness: The patient is a 24-year-old male with a past medical history of gallstones and hypertension who presented to the ED on 12/20/2024 with complaints of abdominal pain and nausea. He was apparently in his usual state of health until about 3 AM the night before when he started having some abdominal pain, initially located in the epigastric region, involving the right upper quadrant and radiating to his back. As the pain was initially about a 3/10, he made no attempt to seek any help until about an hour later when he rates it to have been about 10/10. He also endorses nausea in the same time but denies vomiting or any change in his bowel movements. He had a similar symptom about a month ago when he presented to the ED, no intervention was done at the time as his pain had resolved in the ED. He had upper endoscopy and colonoscopy about a year ago done by Dr. Ordaz due to some family history of colon cancer. ED course: In the ED, patient was initially seen to be in painful distress, initial labs showed WBC 10.4 Hgb 15.4 PLT 239 sodium 141 potassium 4.2 chloride 106 bicarb 28 BUN 19 creatinine 0.9 glucose 81 slightly elevated AST at 40 lipase 1548 and amylase 603. Gallbladder ultrasound was done which showed gallbladder sludge or tiny gallstones, consistent with cholelithiasis. GI Dr. Ordaz and surgeon Dr. Burton were consulted in the ED and the patient is being admitted for management of acute gallstone pancreatitis. PMHx-as above PSHx-Nil Social history-denies smoking or alcohol/illicit drug use Home meds-cimetidine, amlodipine Review of Systems Review of Systems Narrative Review of Systems: GENERAL: Denies fevers/chills or diaphoresis. HEENT: Denies headache or visual/hearing changes. Denies nasal discharge. NEURO: Denies unusual weakness or difficulty speaking. CARDIO: Denies chest pain or palpitations. PULM: Denies SOB, coughing, or wheezing. GI: Admits abdominal pain and nausea that have resolved URO: Denies burning/itching/pain/urinary changes. MSK/EXT/SKIN: Denies joint/skeletal/muscle pain, issues/changes in upper or lower extremities, itchiness, or superficial pain. PSYCH: Cooperative, pleasant mood & affect. Exam Vital Signs Temp Pulse Resp BP Pulse Ox O2 Del Method 97.7 F 67 16 137/87 H 99 Room Air 12/20/24 09:52 12/20/24 11:28 12/20/24 11:28 12/20/24 09:52 12/20/24 09:52 12/20/24 09:52 Narrative Exam GENERAL: AAOX3 NEURO: BODY SHOP SUPERVISOR grossly intact, moves extremities x4 HEENT: Moist mucosa. Eyes open, symmetrical, & clear CARDIO: No chest pain on palpation. Heart RRR, no obvious murmurs PULM: No noted coughing/dyspnea. Lungs CTA B/L GI: Abdomen soft, nondistended, no pain on palpation. BSx4 URO/PEOPLESOFT ADMINISTRATOR:: No further abnormalities noted. SKIN/MSK/EXT: No wounds/rashes/edema/amputations, no pain on palpation. Pedal pulses present B/L Results: Labs 12/21/24 05:10 12/21/24 05:10 Labs: Short CBC 12/20/24 Range/Units 04:45 WBC 10.4 (3.8-10.6) Thou/mm3 Hgb 15.4 (13.5-16.0) g/dL Hct 44.5 (41.0-53.0) % Plt Count 239 D (140-440) Thou/mm3 BMP 12/20/24 04:45 Sodium 141 Potassium 4.2 Chloride 106 Carbon Dioxide 28.0 BUN 19 Creatinine 0.9 Glucose 81 Calcium 9.7 Liver Function 12/20/24 Range/Units 04:45 Total Bilirubin 0.6 (0.3-1.2) mg/dL AST 40 H (0-34) U/L ALT 28 (10-49) U/L Alkaline Phosphatase 59 (46-116) U/L Albumin 4.3 (3.5-5.0) gm/dL Urine 12/20/24 Range/Units 05:12 Urine Color Lt-Yellow (Lt Yel-Yel) Urine Clarity Turbid A (Clear/Hazy) Urine pH 7.5 H (5.0-7.0) Ur Specific [place] 1.024 (1.001-1.035) Urine Protein Trace (Neg - Trace) Urine Glucose (UA) Negative (Negative) Quality Measures Quality Measures none Medications Home Medications and Allergies Home Medications ?Medication ?Instructions ?Recorded ?Confirmed ?Type amlodipine 5 mg tablet 5 mg PO QDAY 10/03/24 History cimetidine 300 mg tablet 300 mg PO TIDWMEAL 10/03/24 10/03/24 History Allergies Allergy/AdvReac Type Severity Reaction Status Date / Time NKA Allergy Unknown Uncoded 10/03/24 12:16 Visit Medications Acetaminophen (Acetaminophen 325 Mg Tablet) 650 mg PO Q6H PRN PRN Reason: Pain 1-3 or Fever >100.3 Stop: 01/19/25 09:53 Hydrocodone Bitart/Acetaminophen (Hydrocodone/Apap 5/325 Tablet) 1 tab PO Q4HR PRN PRN Reason: PAIN SCALE 4-10(Mod-Sev Stop: 12/25/24 09:53 Sodium Chloride (Ns) 1,000 mls @ 100 mls/hr IV .Q10H PASCUAL Stop: 01/20/25 09:00 Last Admin: 12/20/24 11:13 Dose: 100 mls/hr Ondansetron HCl (Ondansetron Inj 2 Mg/Ml Inj 2 Ml) 4 mg IV Q6H PRN; Protocol PRN Reason: NAUSEA OR VOMITING Stop: 01/19/25 09:53 Discontinued Medications Sodium Chloride (Ns) 1,000 mls @ 999 mls/hr IV .Q1H1M ONE Stop: 12/20/24 06:40 Last Infusion: 12/20/24 07:47 Dose: Infused Ketorolac Tromethamine (Ketorolac Inj 60 Mg/2 Ml Vial) 30 mg IM X1 ONE Stop: 12/20/24 03:55 Last Admin: 12/20/24 04:16 Dose: 30 mg Assessment & Plan Plan Summary: The patient is a 24-year-old male with a past medical history of gallstones and hypertension presented to the ED with abdominal pain. #Acute gallstone pancreatitis #History of cholelithiasis The patient presented with a 3-hour history of abdominal pain, initially located only in the epigastric region, involving the right upper quadrant and radiates into the back. He also endorses nausea but denies vomiting or any change in his bowel movements. He does have a history of gallstones however has not had any surgical consult for intervention. In the ED, labs significant for elevated lipase and amylase and he was admitted for management of acute pancreatitis. GI Dr. Ordaz and surgeon have been consulted for possible surgical intervention. At the time of exam the patient, he no longer has any symptoms. Plan: -Admit to MedSurg -IV fluid at 100 cc/h -Full liquid diet, advance as tolerated -N.p.o. prior to surgery -GI consulted, pressure recommendations -Surgeon Dr. Burton consulted, appreciate recommendations #History of hypertension Patient is on amlodipine 10 mg daily. Blood pressure on admission, currently within normal limits Plan: -Hold antihypertensives for now Health maintenance: Dispo: MedSurg Diet: Full liquid DVT: Not indicated Jarrell: None Lines: Peripheral PT: Not ordered Code: Full Case was discussed with Dr Jerome PGY-2 and attending physician, Dr Asencio Disclaimer: This note was dictated by speech recognition. Minor errors in cafe manager may be present due to voice recognition software. Attending Provider Attestation/Addendum I have examined the patient, reviewed labs and imaging findings, discussed the case with the resident(s), and reviewed entered orders. I agree with the plan of care as outlined in this note, with these additional summaries/recommendations: Patient is a 24-year-old male with a medical history of gallstones, GERD, and obesity who presents to [facility] emergency department on 12/20/2024 with chief complaint of right upper quadrant pain. Patient was found to have gallstone pancreatitis in the emergency department and hospitalist team consulted for continuation of care. Patient seen in the emergency department. Patient was given [place] in the emergency room plus Toradol and reports resolution of abdominal pain. Patient made n.p.o. and will start IV fluids. Patient meets 2 out of 3 diagnostic criteria for acute pancreatitis and additional imaging not needed at this time. Gallbladder ultrasound showed cholelithiasis and abnormal thickening of the gallbladder wall. General surgery was consulted with plans for cholecystectomy tomorrow 12/21/2024. Patient updated on the plan and in agreement. All questions answered to satisfaction. Repeat hematology, chemistry, and coagulation panel in AM. Dr. Elif MD
--- NOTE | 2024-12-20 17:43 | PD.SURCONS ---
HPI Consult details Consult date: 12/20/24 Reason for consultation narrative: Patient was seen in consultation because of abdominal pain associated with possible pancreatitis History of present illness: History of present was revealed that the patient was in his usual health until last night when he ate some fatty food and developed pain early this morning. He came to the emergency room and was found to have cholelithiasis and elevated amylase and lipase. A diagnosis of gallstone pancreatitis was made and patient is admitted. Patient had a similar episodes of abdominal pain November of this year but then it resolved. At that time the ultrasound showed gallstones. He had another episode last year which also was treated with observation. Patient used to be heavily more than 300 pounds and is lost weight by diet. He has not had any surgery in the past but he has a history of hypertension and is taking amlodipine Past Medical History Past Medical History NEUROLOGIC: Negative Neurological Disorders or Seizures CARDIAC: Positive Cardiac Disorders and Hypertension; Negative Congestive Heart Failure RESPIRATORY: Negative Respiratory Disorders or Chronic Obstructive Pulmonary Disease (COPD) GASTROINTESTINAL: Positive Gastrointestinal Disorders, Gall Bladder Disease, Gastrointestinal Bleed (rectal) and Gastroesophageal Reflux Disease GENITOURINARY: Negative Genitourinary Disorders or Renal Disease MUSCULOSKELETAL: Negative Musculoskeletal Disorders ENDOCRINE: Negative Endocrine Disorders, Diabetes Mellitus Type 1 or Diabetes Mellitus Type 2 HEMATOLOGIC: Negative Blood Disorders OTHER HISTORY: Negative Hospitalization, Autoimmune Disease, Falls, Blood Transfusions, Chicken Pox, Measles, Mumps or Cancer Social History SMOKING STATUS: Never smoker SUBSTANCE USE: does not use Meds Home Medications and Allergies Home Medications ?Medication ?Instructions ?Recorded ?Confirmed ?Type amlodipine 5 mg tablet 5 mg PO QDAY 10/03/24 10/04/24 History cimetidine 300 mg tablet 300 mg PO TIDWMEAL 10/03/24 10/03/24 History Allergies Allergy/AdvReac Type Severity Reaction Status Date / Time NKA Allergy Unknown Uncoded 10/03/24 12:16 Exam Vital Signs Temp Pulse Resp BP Pulse Ox O2 Del Method 97.7 F 67 16 137/87 H 99 Room Air 12/20/24 09:52 12/20/24 11:28 12/20/24 11:28 12/20/24 09:52 12/20/24 09:52 12/20/24 09:52 Narrative Exam Physical examination revealed an obese male who is 5 foot 7 inches tall weighing 255 pounds with BMI of 39.9. His vital signs are normal and his pain has disappeared now Constitutional Constitutional: no acute distress Routine Abdominal Exam Comments: Abdomen showed this to be soft but there is a lot of loose skin because of his weight loss. It is still obese even though he has lost considerable amount of weight. Routine Rectal Exam Comments: Deferred Routine Exam Comments: Deferred Routine Extremities Exam Comments: Within normal limits Results Results: Laboratory Laboratory Narrative: Laboratory workup showed normal CBC and liver enzymes. But patient had elevated amylase and lipase with 603 and 1548 respectively Results: Imaging Imaging narrative: Ultrasound of the gallbladder showed multiple small gallstones Assessment & Plan Additional Assessment Additional comments: Impression: Cholelithiasis causing pancreatitis Morbid obesity Hypertension Plan Plan: I detailed discussion with the patient about the cause of pancreatitis which is due to cholelithiasis. These microlithiasis are potential for causing pancreatitis. He seems to have had a mild pancreatitis because his abdominal tenderness is not present. We will wait for his amylase and lipase to return to normal levels and then schedule him for laparoscopic cholecystectomy. I discussed with him the procedure of laparoscopic cholecystectomy including potential complications like bile duct injury requiring further surgery. Patient was told that because of his obesity there is increased risk of the surgery. I also advised the patient that he could go home and then come back as an outpatient because his symptoms have resolved. I think he is planning to get this taken care of while he is in the hospital which will be fine. Thank you very much
[2024-12-21] VITALS (13 sets, daily range): BP systolic 120–148; BP diastolic 72–91; PULSE 51–76; RESP 16–99; TEMP 36.2–37.2; O2SAT 96–100
[2024-12-21 05:39] LABS: Basophils % (Auto) 1 % (0-2.5); Eosinophils # (Auto) 0.1 Thou/mm3 (0.0-0.5); Eosinophils % (Auto) 3 % (0-10); Hematocrit 42.7 % (41.0-53.0); Hemoglobin 14.7 g/dL (13.5-16.0); Immature Granulocytes % (Auto) 0 % (0-0); Immature Granulocytes Auto 0.01 Thou/mm3 (0.00-0.00); Lymphocytes % (Auto) 38 % (10-50); Mean Corpuscular HGB Conc 34.4 g/dl (31.0-37.0); Mean Corpuscular Hemoglobin 28.3 pg (25.0-35.0); Mean Corpuscular Volume 82 fL (80-100); Monocytes # (Auto) 0.4 Thou/mm3 (0.0-0.8); Monocytes % (Auto) 8 % (0-12); Neutrophils # (Auto) 2.7 Thou/mm3 (1.8-7.7); Neutrophils % (Auto) 51 % (37-80); Nucleated Red Blood Cell % 0 /100 WBC (0); Platelet Count 237 Thou/mm3 (140-440); RDW Standard Deviation 37.2 fL (35.1-43.9); Red Blood Count 5.19 Miln/mm3 (4.50-5.90); White Blood Count 5.2 Thou/mm3 (3.8-10.6)
[2024-12-21 06:34] LABS: Alanine Aminotransferase 25 U/L (10-49); Albumin/Globulin Ratio 1.6 (1.2-2.2); Alkaline Phosphatase 51 U/L (46-116); Amylase 114 U/L (30-118); Anion Gap 8 (7-16); Aspartate Amino Transferase 18 U/L (0-34); BUN/Creatinine Ratio 16 Ratio (12-20); Bilirubin,Total 0.9 mg/dL (0.3-1.2); Blood Urea Nitrogen 11 mg/dL (9-23); Calcium 9.2 mg/dL (8.3-10.6); Calcium (Corrected) 9.2 mg/dL (8.5-10.1); Carbon Dioxide 26.3 mMol/L (20.0-31.0); Chloride 107 mMol/L (98-107); Creatinine (Component) 0.7 mg/dL (0.6-1.3); Estimated Creatinine Clearance 199.5 mL/min (>60); Globulin 2.5 gm/dL (2.3-3.5); Glucose 89 mg/dL (74-106); Lipase 56 U/L (12-53); Magnesium 1.9 mg/dL (1.6-2.6); Osmolality,Calculated 279 (275-295); Phosphorous 3.4 mg/dL (2.4-5.1); Potassium 4.1 mMol/L (3.4-5.1); Sodium 141 mMol/L (136-145); Total Protein 6.5 gm/dL (5.7-8.2); eGFR > 60 See Note
[2024-12-21] MEDS: RINGERS LACTATED 1000 ML 1,000 ML 200 ML IV ×2 (07:59→14:03)
--- NOTE | 2024-12-21 15:46 | PD.RESPRO ---
Documentation for date of: 12/21/24 Subjective Subjective Interval history: Patient seen at bedside. No acute overnight events. He was evaluated by surgeon Dr. Burton yesterday, scheduled for lap cholecystectomy today. Other than that, patient is stable, has no abdominal pain, lipase and amylase have returned to normal levels. Exam Vital Signs Temp Pulse Resp BP Pulse Ox O2 Del Method 97.5 F 58 L 18 131/84 H 100 Room Air 12/21/24 12:00 12/21/24 12:00 12/21/24 12:00 12/21/24 12:00 12/21/24 12:00 12/21/24 12:00 Narrative Exam GENERAL: AAOX3 NEURO: MEAT SCRUBBER grossly intact, moves extremities x4 HEENT: Moist mucosa. Eyes open, symmetrical, & clear CARDIO: No chest pain on palpation. Heart RRR, no obvious murmurs PULM: No noted coughing/dyspnea. Lungs CTA B/L GI: Abdomen soft, nondistended, no pain on palpation. BSx4 URO/APPLICATION INFRASTRUCTURE ENGINEER:: No further abnormalities noted. SKIN/MSK/EXT: No wounds/rashes/edema/amputations, no pain on palpation. Pedal pulses present B/L Objective Labs 12/22/24 04:44 12/22/24 04:44 Labs: Laboratory Results - last 24 hr 12/21/24 05:10 WBC 5.2 D RBC 5.19 Hgb 14.7 Hct 42.7 MCV 82 MCH 28.3 MCHC 34.4 RDW Std Deviation 37.2 Plt Count 237 Neut % (Auto) 51 Lymph % (Auto) 38 [place] % (Auto) 8 Eos % (Auto) 3 Baso % (Auto) 1 Neut # (Auto) 2.7 Lymph # (Auto) 2.0 [place] # (Auto) 0.4 Eos # (Auto) 0.1 Baso # (Auto) 0.0 Immature Gran # (Auto) 0.01 H Absolute Nucleated RBC 0.00 Immature Gran % 0 Nucleated RBC % 0 Sodium 141 Potassium 4.1 Chloride 107 Carbon Dioxide 26.3 Anion Gap 8 BUN 11 Creatinine 0.7 Estim Creat Clear Calc 199.5 eGFR > 60 BUN/Creatinine Ratio 16 Glucose 89 Calculated Osmolality 279 Calcium 9.2 Corrected Calcium 9.2 Phosphorus 3.4 Magnesium 1.9 Total Bilirubin 0.9 AST 18 ALT 25 Alkaline Phosphatase 51 Total Protein 6.5 Albumin 4.0 Globulin 2.5 Albumin/Globulin Ratio 1.6 Amylase 114 Lipase 56 H D Quality Measures Quality Measures none Assessment & Plan Assessment Current Active Medications: Generic Name Dose Route Start Last Admin Trade Name Freq PRN Reason Stop Dose Admin Acetaminophen 650 mg 12/20/24 09:54 Acetaminophen 325 Mg Tablet PO 01/19/25 09:53 Q6H PRN Pain 1-3 or Fever >100.3 Hydrocodone Bitart/Acetaminophen 1 tab 12/20/24 09:54 Hydrocodone/Apap 5/325 Tablet PO 12/25/24 09:53 Q4HR PRN PAIN SCALE 4-10(Mod-Sev Fentanyl Citrate 25 mcg 12/21/24 15:35 Fentanyl Cit Inj 50 Mcg/Ml Amp 2ml IV 12/21/24 17:35 Q5M PRN PAIN SCALE 1-3 (mild Hydromorphone HCl 0.4 mg 12/21/24 15:35 Hydromorphone Inj 2 Mg/Ml Vial IV 12/21/24 17:35 Q5M PRN PAIN SCALE 7-10 (Severe Lactated Ringer's 1,000 mls @ 200 mls/hr 12/21/24 07:43 12/21/24 14:03 Lactated Ringers IV 01/20/25 07:42 200 mls/hr .Q5H PASCUAL Administration Acetaminophen 1,000 mg in 100 mls @ 250 mls/hr 12/21/24 15:36 Ofirmev Inj IV 12/22/24 09:59 Q6H PASCUAL Morphine Sulfate 3 mg 12/21/24 15:35 Morphine Sulf Inj 10 Mg/Ml Vial IV 12/21/24 17:35 Q5M PRN PAIN SCALE 4-6 (Moderate Ondansetron HCl 4 mg 12/20/24 09:54 Ondansetron Inj 2 Mg/Ml Inj 2 Ml IV 01/19/25 09:53 Q6H PRN NAUSEA OR VOMITING Protocol Plan Summary: The patient is a 24-year-old male with a past medical history of gallstones and hypertension presented to the ED with abdominal pain. #Acute gallstone pancreatitis #History of cholelithiasis The patient presented with a 3-hour history of abdominal pain, initially located only in the epigastric region, involving the right upper quadrant and radiates into the back. He also endorses nausea but denies vomiting or any change in his bowel movements. He does have a history of gallstones however has not had any surgical consult for intervention. In the ED, labs significant for elevated lipase and amylase and he was admitted for management of acute pancreatitis. GI Dr. Ordaz and surgeon have been consulted for possible surgical intervention. At the time of exam the patient, he no longer has any symptoms. 12/21/2024- Scheduled for laparoscopic cholecystectomy today Plan: -Continue IV fluid at 100 cc/h -N.p.o. prior to surgery -GI consulted, appreciate recommendations -Surgeon Dr. Burton consulted, appreciate recommendations #History of hypertension Patient is on amlodipine 10 mg daily. Blood pressure on admission, currently within normal limits Plan: -Hold antihypertensives for now Health maintenance: Dispo: MedSurg Diet: NPO DVT: Not indicated Jarrell: None Lines: Peripheral PT: Not ordered Code: Full Case was discussed with Dr Oliveira PGY-2 and attending physician, Dr Asencio Disclaimer: This note was dictated by speech recognition. Minor errors in desk operator may be present due to voice recognition software. Patient examined and case discussed with the team including attending physician. Note reviewed, I agree with the care plan as documented. Plan: NPO for Laparascopic cholecystectomy scheduled for today 12/21/2024 for gallstone pancreatitis, possible exacerbation by hx of GLP1 use as well. Will evaluate post operatively. Continue IVF hydration. - Jitendra Oliveira MD, PGY 2 Attending Provider Attestation/Addendum I have examined the patient, reviewed labs and imaging findings, discussed the case with the resident(s), and reviewed entered orders. I agree with the plan of care as outlined in this note, with these additional summaries/recommendations: Patient seen at bedside. No acute overnight events. Today patient reports his abdominal pain has almost resolved. We will continue IV fluids for gallstone pancreatitis. Lipase has almost normalized from 1548 on admission. Patient will go for cholecystectomy with general surgery. Continue pain management. Will resume diet when able. Repeat hematology and chemistry panel in AM. Dr. Elif MD
--- NOTE | 2024-12-21 16:46 | ESOP_ITS ---
Date of Procedure 12/21/24 Pre Op Diagnosis Gallstone pancreatitis with small gallstones Post Op Diagnosis Same Procedure Laparoscopic cholecystectomy Findings Patient was found to have a noninflamed gallbladder with tiny stones Procedure Description After endotracheal anesthesia was given the patient was placed in supine position and the abdomen was prepped with chloroprep solution and draped in a sterile manner. After time out was performed I injected a few cc of of half percent Marcaine with epinephrine below the umbilicus and I made an incision for about 3 cm in length. The fascia was cleaned and Veress needle was inserted to create a pneumoperitoneum up to 15 mmHg. Then introduced a 12 mm trocar and a 10 mm camera through the fascia and I inspected the intra-abdominal organs as well as the gallbladder and the liver. Another 5 mm trocar was inserted in the epigastric region under direct vision after injecting some local anesthesia. At this time the patient was kept in reverse Trendelenburg position with the left lateral tilt. The third 5 mm trocar was inserted over the mid axillary line under direct vision and a Barrie and Stephanie grasper was used to hold the fundus of the gallbladder. The retraction was carried out by the assistant professor of archaeology moving the fundus of the gallbladder towards the right shoulder of the patient to create enough traction. I placed a another 5 mm trocar in the midaxillary line just lateral to the rectus muscle under direct vision. I used a fenestrated grasper to retract the neck of the gallbladder laterally towards the patient's right hip. The Calot's triangle was exposed and I achieved the critical view of safety as follows: I dissected out the fatty tissue from the hepatocystic triangle and cleared this area. I also dissected inferior and posterior to the gallbladder to identify the cystic duct and the gallbladder wall. Then superiorly I dissected along the cystic plate up to lower one third third of the gallbladder to lift the gallbladder from the liver. At this time I confirmed that only 2 structures entering the gallbladder were cystic artery and the cystic duct. The common duct was seen distally but no dissection was carried out around the duct. I did not see any need for operative cholangiogram in this patient. The cystic duct was clipped doubly and then divided and cystic artery was similarly dealt with. Then the gallbladder was removed from the liver bed using Harmonic cesar to control the small blood vessels as the dissection proceeded. Then the gallbladder was from the liver bed completely and delivered through the umbilical port using an Endopouch. The liver bed was coagulated with cautery to obtain satisfactory hemostasis. The trocars were pulled out from the abdominal cavity and the fascia at the umbilical incision was closed with interrupted 0 Ethibond. Subcutaneous tissues was closed with 3- 0 chromic and injected a few cc of half percent Marcaine with epinephrine and the skin was closed with interrupted 4-0 Monocryl subcuticular stitches at all the trocar sites. Dressing was applied with 2 x 2 and Tegaderm. Patient chely ated the procedure well and returned to recovery room in stable condition. Anesthesia GETA Pathology / specimen Other (Gallbladder and the stones) IVF Infused 600 Estimated Blood Loss 20 Condition Stable Disposition PACU Surgeon Rupinder Romo MD Surgical Staff Operation Date: 12/21/24 13:15 Case Staff Anesthesiologist: Adelfo Chowdhury RN First Assistant: Edita Polanco
--- NOTE | 2024-12-21 16:58 | SUR.PHASEI ---
1654 To PACU able to lift head off of pillow, following simple commands continue to monitor pt vital signs and status.
--- NOTE | 2024-12-21 17:51 | SUR.PHASEI ---
1735 Transfer to room 383 in stable condition, awake and alert no complaints, no s/s of distress noted, no change to abdomen dressings mother at bedside.
[2024-12-21] MEDS: ACETAMINOPHEN IVPB 1,000 MG/100 ML VIAL 250 MG IV (18:08)
[2024-12-21] MEDS: MORPHINE SULF INJ 10 MG/ML VIAL 5 MG IVP (19:33)
--- NOTE | 2024-12-21 19:37 | PD.IMPROG ---
Documentation for date of: 12/21/24 Subjective Subjective Interval history: Patient status post laparoscopic cholecystectomy Exam Vital Signs Temp Pulse Resp BP Pulse Ox O2 Del Method O2 Flow Rate 97.8 F 73 19 140/87 H 98 Room Air 3 12/21/24 17:25 12/21/24 17:25 12/21/24 17:25 12/21/24 17:25 12/21/24 17:25 12/21/24 12:00 12/21/24 17:05 Objective Labs 12/21/24 05:10 12/21/24 05:10 Labs: Laboratory Results - last 24 hr 12/21/24 05:10 WBC 5.2 D RBC 5.19 Hgb 14.7 Hct 42.7 MCV 82 MCH 28.3 MCHC 34.4 RDW Std Deviation 37.2 Plt Count 237 Neut % (Auto) 51 Lymph % (Auto) 38 [place] % (Auto) 8 Eos % (Auto) 3 Baso % (Auto) 1 Neut # (Auto) 2.7 Lymph # (Auto) 2.0 [place] # (Auto) 0.4 Eos # (Auto) 0.1 Baso # (Auto) 0.0 Immature Gran # (Auto) 0.01 H Absolute Nucleated RBC 0.00 Immature Gran % 0 Nucleated RBC % 0 Sodium 141 Potassium 4.1 Chloride 107 Carbon Dioxide 26.3 Anion Gap 8 BUN 11 Creatinine 0.7 Estim Creat Clear Calc 199.5 eGFR > 60 BUN/Creatinine Ratio 16 Glucose 89 Calculated Osmolality 279 Calcium 9.2 Corrected Calcium 9.2 Phosphorus 3.4 Magnesium 1.9 Total Bilirubin 0.9 AST 18 ALT 25 Alkaline Phosphatase 51 Total Protein 6.5 Albumin 4.0 Globulin 2.5 Albumin/Globulin Ratio 1.6 Amylase 114 Lipase 56 H D Impressions Impression: Biliary pancreatitis status post laparoscopic cholecystectomy Continue postoperative care Assessment & Plan A&P Narrative # Acute biliary pancreatitis Plan N.p.o. IV fluids Pain control Once amylase and lipase comes down patient should have laparoscopic versus open cholecystectomy No need for MRCP or HIDA scan Thank you for the opportunity to participate in the care of this patient Other medical problems include Essential hypertension Time Spent With Patient Time: Total time spent is greater than 50% in coordination of care (as documented) at patient's floor/unit and/or counseling patient:
[2024-12-22] VITALS: BP 179/91; PULSE 63; RESP 18; TEMP 36.4; O2SAT 97
[2024-12-22] MEDS: ACETAMINOPHEN IVPB 1,000 MG/100 ML VIAL 250 MG IV ×3 (01:39→13:10)
[2024-12-22 04:00] VITALS: BP 123/84; PULSE 67; RESP 18; TEMP 36.4; O2SAT 97
[2024-12-22 05:04] LABS: Basophils % (Auto) 0 % (0-2.5); Eosinophils % (Auto) 0 % (0-10); Hematocrit 44.6 % (41.0-53.0); Hemoglobin 15.4 g/dL (13.5-16.0); Immature Granulocytes % (Auto) 0 % (0-0); Immature Granulocytes Auto 0.03 Thou/mm3 (0.00-0.00); Lymphocytes # (Auto) 1.2 Thou/mm3 (1.0-4.8); Lymphocytes % (Auto) 10 % (10-50); Mean Corpuscular HGB Conc 34.5 g/dl (31.0-37.0); Mean Corpuscular Hemoglobin 27.8 pg (25.0-35.0); Mean Corpuscular Volume 81 fL (80-100); Monocytes # (Auto) 0.5 Thou/mm3 (0.0-0.8); Monocytes % (Auto) 4 % (0-12); Neutrophils # (Auto) 9.6 Thou/mm3 (1.8-7.7); Neutrophils % (Auto) 85 % (37-80); Nucleated Red Blood Cell % 0 /100 WBC (0); Platelet Count 237 Thou/mm3 (140-440); RDW Standard Deviation 35.3 fL (35.1-43.9); Red Blood Count 5.53 Miln/mm3 (4.50-5.90); White Blood Count 11.2 Thou/mm3 (3.8-10.6)
[2024-12-22 05:31] LABS: Alanine Aminotransferase 33 U/L (10-49); Albumin, Serum 4.3 gm/dL (3.5-5.0); Albumin/Globulin Ratio 1.5 (1.2-2.2); Alkaline Phosphatase 57 U/L (46-116); Anion Gap 9 (7-16); Aspartate Amino Transferase 24 U/L (0-34); BUN/Creatinine Ratio 9 Ratio (12-20); Bilirubin,Total 0.9 mg/dL (0.3-1.2); Blood Urea Nitrogen 7 mg/dL (9-23); Calcium 9.7 mg/dL (8.3-10.6); Calcium (Corrected) 9.7 mg/dL (8.5-10.1); Carbon Dioxide 26.7 mMol/L (20.0-31.0); Chloride 104 mMol/L (98-107); Creatinine (Component) 0.8 mg/dL (0.6-1.3); Estimated Creatinine Clearance 174.5 mL/min (>60); Globulin 2.9 gm/dL (2.3-3.5); Glucose 111 mg/dL (74-106); Osmolality,Calculated 278 (275-295); Phosphorous 3.8 mg/dL (2.4-5.1); Potassium 4.7 mMol/L (3.4-5.1); Sodium 140 mMol/L (136-145); Total Protein 7.2 gm/dL (5.7-8.2); eGFR > 60 See Note
[2024-12-22 08:00] VITALS: BP 143/92; PULSE 65; RESP 18; TEMP 36.2; O2SAT 97
[2024-12-22 12:00] VITALS: BP 141/91; PULSE 64; RESP 18; TEMP 36.3; O2SAT 99
--- NOTE | 2024-12-22 15:44 | ESDS_ITS ---
<Statement entered by Jitendra Oliveira MD - 12/23/24 09:19> Patient was examined with the team including attending physician. Note reviewed, I agree with the discharge plan as documented. - Jitendra Oliveira M.D. PGY2 Disclaimer: Despite multiple revisions, due to the dictation software being used, the document bellow may not be free of grammatical errors including phonetic/typographic errors. However, this does not deter from our commitment to providing health care in the patient's best interest in mind. Planned Discharge Date 12/22/24 DS: Providers Provider Date of admission: 12/20/24 09:52 Primary care physician: Misbah Velazquez MD Admitting Provider: Andrzej Asencio MD Attending Provider on Admission: Andrzej Asencio MD Consults: 12/20/24 09:08 Consult to General Surgery Stat Comment: Consulting Provider: Rupinder Romo 12/20/24 09:09 Consult to Gastroenterology Stat Comment: Consulting Provider: Manuelito Ordaz Attending Provider on DC: Andrzej Asencio MD Discharging Provider: Tejas Griffith MD DS: Diagnosis Problem List Completed Was Problem List Reviewed/Reconciled?: Yes Hospital Course Hospital Course Hospital course: The patient is a 24-year-old male with a past medical history of hypertension and gallstones who presented to the ED on 12/20/2024 with complaints of abdominal pain and nausea. Initial labs showed elevated lipase of 1548 and amylase of 603 with slightly elevated AST. Gallbladder ultrasound was done which showed gallbladder sludge and tiny stones consistent with cholelithiasis but no cholecystitis. At the time of review, the pain had resolved by the general surgery was consulted anyway. He was admitted for management of acute gallstone pancreatitis. He was started on IV fluids and pain management. On 12/21/2024, patient has laparoscopic cholecystectomy done, procedure was tolerated well. Today, he is clinically and hemodynamically stable, diet has been advanced and he is tolerating well. He has been cleared for discharge to follow-up with surgeon within 2 weeks. He is recommended to also follow-up with his primary care provider within 1 week of discharge. #Acute gallstone pancreatitis-resolved #History of gallstones #History of hypertension Discharge instructions: Follow up with your PCP within 1 week of discharge Follow up with surgeon Dr Burton on Richard March 3 Take pain medication [place] as needed Return to the ED if your symptoms worsen Case was discussed with Dr Oliveira PGY-2 and attending physician, Dr Asencio Disclaimer: This note was dictated by speech recognition. Minor errors in zigzagger may be present due to voice recognition software. Time Spent with Patient Time attestation: Total time spent providing and/or coordinating discharge services: Exam Vital Signs Temp Pulse Resp BP Pulse Ox O2 Del Method O2 Flow Rate 97.3 F 64 18 141/91 H 99 Room Air 3 12/22/24 12:12/22/24 12:12/22/24 12:12/22/24 12:12/22/24 12:12/22/24 12:12/22/24 04:00 Narrative Exam GENERAL: AAOX3 NEURO: CABIN[employer] MAINTENANCE grossly intact, moves extremities x4 HEENT: Moist mucosa. Eyes open, symmetrical, & clear CARDIO: No chest pain on palpation. Heart RRR, no obvious murmurs PULM: No noted coughing/dyspnea. Lungs CTA B/L GI: Abdomen soft, nondistended, mildly tender to palpation at op sites URO/INFERTILITY NURSE:: No further abnormalities noted. SKIN/MSK/EXT: No wounds/rashes/edema/amputations, no pain on palpation. Pedal pulses present B/L Discharge Plan Plan Patient Disposition: HOME (Self Care) Care Plan Goals: Follow up with your PCP within 1 week of discharge Follow up with surgeon Dr Burton on WednesdayJanuary 01 Take pain medication [place] as needed Return to the ED if your symptoms worsen Prescriptions/Referrals Prescriptions/Med Rec: New hydrocodone-acetaminophen 5-325 mg tablet 1 tab PO Q6H MDD 4 Qty: 20 0RF Continued dicyclomine 20 mg tablet 20 mg PO TID PRN (Reason: abdominal pain) Qty: 20 0RF amlodipine 5 mg tablet 5 mg PO QDAY Patient Comments: TAKE 1 TABLET BY MOUTH ONCE DAILY cimetidine 300 mg tablet 300 mg PO TIDWMEAL Patient Comments: TAKE 1 TABLET BY MOUTH TWICE DAILY WITH MEALS Referrals: Marcus (PCP)Misbah MD [Primary Care Provider] - Patient/Caregiver Discharge Instructions Education Materials: Preventing Surgical Site Infections Print Language: Upper Sorbian Activity Restrictions/Additional Instructions: Diet as tolerated Remove Tegaderms and may shower Activities as tolerated Follow-up in my office on January 01. Call [phone] for appointment time Stand Alone Forms: Vera Award Info., Patient Portal Info Letter Discharge Order Discharge Orders: Discharge (Routine); Ordered 12/22/24 Ordered By: Tejas Griffith Quality Discharge Quality Measures none MD Attestestation MD Attestation I have examined the patient, reviewed labs and imaging findings, discussed the case with the resident(s), and reviewed entered orders. I agree with the plan of care as outlined in this note. Dr. Elif MD
--- NOTE | 2024-12-22 19:59 | PD.IMPROG ---
Documentation for date of: 12/22/24 Subjective Subjective Interval history: late entry for the note Case discussed with internal medicine team Okay to discharge patient home no need for GI follow-up Exam Vital Signs Temp Pulse Resp BP Pulse Ox O2 Del Method O2 Flow Rate 97.3 F 64 18 141/91 H 99 Room Air 3 12/22/24 12:00 12/22/24 12:00 12/22/24 12:00 12/22/24 12:00 12/22/24 12:00 12/22/24 12:00 12/22/24 04:00 Objective Labs 12/22/24 04:44 12/22/24 04:44 Labs: Laboratory Results - last 24 hr 12/22/24 04:44 WBC 11.2 H D RBC 5.53 Hgb 15.4 Hct 44.6 MCV 81 MCH 27.8 MCHC 34.5 RDW Std Deviation 35.3 Plt Count 237 Neut % (Auto) 85 H Lymph % (Auto) 10 [place] % (Auto) 4 Eos % (Auto) 0 Baso % (Auto) 0 Neut # (Auto) 9.6 H Lymph # (Auto) 1.2 [place] # (Auto) 0.5 Eos # (Auto) 0.0 Baso # (Auto) 0.0 Immature Gran # (Auto) 0.03 H Absolute Nucleated RBC 0.00 Immature Gran % 0 Nucleated RBC % 0 Sodium 140 Potassium 4.7 D Chloride 104 Carbon Dioxide 26.7 Anion Gap 9 BUN 7 L Creatinine 0.8 Estim Creat Clear Calc 174.5 eGFR > 60 BUN/Creatinine Ratio 9 L Glucose 111 H Calculated Osmolality 278 Calcium 9.7 Corrected Calcium 9.7 Phosphorus 3.8 Magnesium 2.0 Total Bilirubin 0.9 AST 24 ALT 33 Alkaline Phosphatase 57 Total Protein 7.2 Albumin 4.3 Globulin 2.9 Albumin/Globulin Ratio 1.5 Impressions Impression: Status post laparoscopic cholecystectomy for biliary pancreatitis doing well postoperatively Okay to discharge patient home Assessment & Plan A&P Narrative # Acute biliary pancreatitis Plan N.p.o. IV fluids Pain control Once amylase and lipase comes down patient should have laparoscopic versus open cholecystectomy No need for MRCP or HIDA scan Thank you for the opportunity to participate in the care of this patient Other medical problems include Essential hypertension Time Spent With Patient Time: Total time spent is greater than 50% in coordination of care (as documented) at patient's floor/unit and/or counseling patient:
== END 2024-12-22 14:38 | disposition home or self-care (01) | DRG 417 ==
LOC: SERX 06:43 → SERHOLD 11:03 → S3SX 13:53
PROVIDERS: Surgery; Admitting Provider Student in an Organized Health Care Education/Training Program; Emergency Provider Emergency Medicine; PCP Family Medicine; Visit Provider Student in an Organized Health Care Education/Training Program
PROC: 0FT44ZZ Resection of Gallbladder, Percutaneous Endoscopic Approach (ICD-10-PCS; CPT 47562; principal; 2024-12-21 13:00)
DX: K80.20 Calculus of gallbladder without cholecystitis without obstruction (principal); K85.10 Biliary acute pancreatitis without necrosis or infection; I10 Essential (primary) hypertension; E66.01 Morbid (severe) obesity due to excess calories; Z68.39 Body mass index [BMI] 39.0-39.9, adult
CPT/HCPCS: 36415; 76705; 80053; 80307; 81001; 82150; 83690; 83735; 84100; 85025; J0131; J1100; J1885; J2250; J2270; J2405; J2704; J3010; J3490; J7030; J7120

== ENCOUNTER → 2025-06-25 | Outpatient (CLI) | payer OTHER, SELFPAY ==
[2025-06-25 08:10] LABS: Collection Type, Urine Clean Catch
[2025-06-25 08:46] LABS: Basophils # (Auto) 0.1 Thou/mm3 (0.0-0.2); Basophils % (Auto) 1 % (0-2.5); Eosinophils # (Auto) 0.2 Thou/mm3 (0.0-0.5); Eosinophils % (Auto) 2 % (0-10); Hematocrit 49.1 % (41.0-53.0); Hemoglobin 16.5 g/dL (13.5-16.0); Immature Granulocytes Auto 0.02 Thou/mm3 (0.00-0.00); Lymphocytes # (Auto) 2.2 Thou/mm3 (1.0-4.8); Lymphocytes % (Auto) 30 % (10-50); Mean Corpuscular HGB Conc 33.6 g/dl (31.0-37.0); Mean Corpuscular Hemoglobin 28.4 pg (25.0-35.0); Mean Corpuscular Volume 84 fL (80-100); Monocytes # (Auto) 0.6 Thou/mm3 (0.0-0.8); Monocytes % (Auto) 8 % (0-12); Neutrophils # (Auto) 4.4 Thou/mm3 (1.8-7.7); Neutrophils % (Auto) 59 % (37-80); Nucleated Red Blood Cell # 0.00 Thou/mm3 (0.00-0.00); Nucleated Red Blood Cell % 0 /100 WBC (0); Platelet Count 278 Thou/mm3 (140-440); RDW Standard Deviation 39.2 fL (35.1-43.9); Red Blood Count 5.82 Miln/mm3 (4.50-5.90); White Blood Count 7.4 Thou/mm3 (3.8-10.6)
[2025-06-25 09:06] LABS: Alanine Aminotransferase 17 U/L (10-49); Albumin, Serum 4.4 gm/dL (3.5-5.0); Albumin/Globulin Ratio 1.8 (1.2-2.2); Alkaline Phosphatase 51 U/L (46-116); Anion Gap 9 (7-16); Aspartate Amino Transferase 14 U/L (0-34); BUN/Creatinine Ratio 12 Ratio (12-20); Bilirubin,Total 0.7 mg/dL (0.3-1.2); Blood Urea Nitrogen 11 mg/dL (9-23); Calcium 10.1 mg/dL (8.3-10.6); Calcium (Corrected) 10.1 mg/dL (8.5-10.1); Carbon Dioxide 27.9 mMol/L (20.0-31.0); Cardiac Risk Estimate 3.7 RATIO (4.0-6.7); Chloride 105 mMol/L (98-107); Cholesterol 202 mg/dL (132-200); Creatinine (Component) 0.9 mg/dL (0.6-1.3); Globulin 2.5 gm/dL (2.3-3.5); Glucose 97 mg/dL (74-106); HDL Cholesterol 55 mg/dL (40-60); LDL Cholesterol,Calculated 123 mg/dL (0-130); Osmolality,Calculated 282 (275-295); Potassium 4.8 mMol/L (3.4-5.1); Sodium 142 mMol/L (136-145); Thyroid Stimulating Hormone 2.73 uIU/mL (0.55-4.78); Total Protein 6.9 gm/dL (5.7-8.2); Triglycerides 122 mg/dL (30-150); eGFR > 60 See Note
[2025-06-25 09:08] LABS: Vitamin D 25 Hydroxy Total 25.6 ng/mL (7.3-40.2)
[2025-06-25 09:20] LABS: Bilirubin,Urine Negative (Negative); Blood,Urine Negative (Negative); Clarity,Urine Clear (Clear/Hazy); Color,Urine Lt-Yellow (Lt Yel-Yel); Culture Indicated,Urine Not Indicated; Glucose, Urine Negative (Negative); Ketones,Urine Negative (Negative); Leukocyte Esterase,Urine Negative (Negative); Nitrite,Urine Negative (Negative); PH,Urine 6.0 (5.0-7.0); Protein,Urine Negative (Neg - Trace); RBC,Urine 1 /hpf (0-3); Specific Gravity,Urine 1.025 (1.001-1.035); Squamous Epithelial Cell,Urine 1 /hpf (0-5); Urobilinogen,Urine Negative mg/dL (0.0-1.0); WBC,Urine 1 /hpf (0-5)
== END | disposition home or self-care (01) ==
LOC: COPL 06:39
PROVIDERS: PCP Family Medicine; Referring Provider Family Medicine; Visit Provider Family Medicine
DX: Z00.00 Encounter for general adult medical examination without abnormal findings (principal); M08.00 Unspecified juvenile rheumatoid arthritis of unspecified site; R19.5 Other fecal abnormalities; Z13.0 Encounter for screening for diseases of the blood and blood-forming organs and certain disorders involving the immune mechanism; Z13.29 Encounter for screening for other suspected endocrine disorder; Z13.21 Encounter for screening for nutritional disorder; Z13.1 Encounter for screening for diabetes mellitus
CPT/HCPCS: 36415; 80053; 80061; 81001; 82306; 84443; 85025

== ENCOUNTER → 2025-06-26 | Outpatient (CLI) | payer OTHER, SELFPAY ==
[2025-06-28 06:35] LABS: Fecal Globin Result NOT DETECTED (NOT DETECTED)
== END | disposition home or self-care (01) ==
LOC: SLDO 09:39
PROVIDERS: Referring Provider Family Medicine; Visit Provider Family Medicine
DX: Z00.00 Encounter for general adult medical examination without abnormal findings (principal); M08.00 Unspecified juvenile rheumatoid arthritis of unspecified site; R19.5 Other fecal abnormalities; Z13.0 Encounter for screening for diseases of the blood and blood-forming organs and certain disorders involving the immune mechanism; Z13.1 Encounter for screening for diabetes mellitus; Z13.21 Encounter for screening for nutritional disorder; Z13.29 Encounter for screening for other suspected endocrine disorder
CPT/HCPCS: 82274; G0328